=== PATIENT | female | born 1945 | race Caucasian/White ===

== ENCOUNTER → 2022-01-29 | Outpatient (CLI) | payer MEDICARE ==
--- NOTE | 2022-01-29 17:42 | Diagnostic Imaging Report ---
HISTORY: Right foot ulcer. COMPARISON: None. TECHNIQUE: Toe-brachial index was obtained of the right foot. The patient declined the remainder of the exam. FINDINGS/ IMPRESSION: The right toe-brachial index measures 0.58, consistent with mild arterial disease. Dictated by: Dictated on workstation # [id number]
== END ==
LOC: RAD 15:45
PROVIDERS: ATTEND Nurse Practitioner Family
DX: L97.519 Non-pressure chronic ulcer of other part of right foot with unspecified severity (principal)
CPT/HCPCS: 93922